=== PATIENT | male | born 1965 | race Caucasian/White ===

== ENCOUNTER → 2018-04-16 | Outpatient (REF) ==
[2018-04-16 16:29] LABS: IRON,SERUM 181 ug/dL (35-150); LACTATE DEHYDROGENASE 446 U/L (313-618)
[2018-04-16 16:39] LABS: TOTAL IRON BINDING CAPACITY 245 ug/dL (261-462)
[2018-04-16 17:05] LABS: FERRITIN 100 ng/mL (18-464)
== END ==
LOC: ZLAB.WCH 16:15
PROVIDERS: Internal Medicine
DX: Z01.89 Encounter for other specified special examinations (principal)

== ENCOUNTER → 2020-09-27 | Outpatient (REF) ==
[2020-09-27 21:14] LABS: ALBUMIN 4.2 gm/dL (3.5-5.0); BILIRUBIN,TOTAL 0.5 mg/dL (0.0-1.0); CALCIUM 9.1 mg/dL (8.4-10.2); CREATININE, serum 1.26 (0.66-1.25); POTASSIUM 4.3 mmol/L (3.4-5.0); TOTAL PROTEIN 7.2 gm/dL (6.4-8.2)
[2020-09-27 21:54] LABS: IRON,SERUM 113 ug/dL (35-150)
[2020-09-27 22:03] LABS: TOTAL IRON BINDING CAPACITY 283 ug/dL (261-462)
== END ==
LOC: ZLAB.WCH 20:41
PROVIDERS: Internal Medicine Medical Oncology
DX: Z01.89 Encounter for other specified special examinations (principal)

== ENCOUNTER → 2023-08-18 | Outpatient (CLI) | payer OTHER | LOC: COL.CARD 10:15 | DX: R06.02 Shortness of breath (principal) ==